=== PATIENT | female | born 1990 ===

== ENCOUNTER 2018-05-30 07:18 | Day surgery (SDC) | payer BC ==
[~2018-05-30 07:18] MED LIST: Lactated Ringers 1,000 ML IV SCH; Lidocaine 1%/Sod Bicarbonate in NS 8.4% 1 ML Syringe IDERM PRN; Sodium Chloride 0.9% 10 ML Syringe FLUSH PRN
[2018-05-30] MEDS ORDERED: Propofol 200 MG/20 ML SDV ONE ×2 (07:23→07:24)
[2018-05-30] MEDS ORDERED: Lidocaine 1% 4 ML ONE (07:24)
--- NOTE | 2018-05-30 07:40 | PCM.PREANE ---
Preanesthetic Assessment - Procedure Proposed Procedure: EGD, Colonoscopy - Anesthesia/Transfusion/Family Hx Anesthesia History: Prior Anesthesia Without Reaction (sedation for wisdom teeth only) Family History of Anesthesia Reaction: No Transfusion History: No Prior Transfusion(s) Intubation History: Unknown - Review of Systems General: No Symptoms Pulmonary: Other (exercise induced asthma, not had symptoms for years since HS ) Cardiovascular: No Symptoms Gastrointestinal: Other (IBS ) Neurological: No Symptoms Other: Reports: Anxiety - Physical Assessment NPO Status Date: 05/29/18 NPO Status Time: 00:00 Pulse: 84 O2 Sat by Pulse Oximetry: 98 Respiratory Rate: 16 Blood Pressure: 130/96 Temperature: 98.4 C Height: 1.68 m Weight: 115.666 kg ASA Class: 3 Mental Status: Alert & Oriented x3 Airway Class: Mallampati = 3 Dentition: Reports: Normal Dentition, Dentures Thyro-Mental Finger Breadths: 2 Mouth Opening Finger Breadths: 4 ROM/Head Extension: Full Lungs: Clear to Auscultation, Normal Respiratory Effort Cardiovascular: Regular Rate, Regular Rhythm - Allergies Allergies/Adverse Reactions: Allergies Allergy/AdvReac Type Severity Reaction Status Date / Time amoxicillin Allergy Rash Verified 05/29/18 11:21 Penicillins Allergy Rash Verified 05/29/18 11:21 Sulfa (Sulfonamide Allergy Rash Verified 05/29/18 11:21 Antibiotics) - Blood Blood Available: No - Anesthesia Plan Pre-Op Medication Ordered: None - Acknowledgements Anesthesia Type Planned: MAC Pt an Appropriate Candidate for the Planned Anesthesia: Yes Alternatives and Risks of Anesthesia Discussed w Pt/Guardian: Yes Pt/Guardian Understands and Agrees with Anesthesia Plan: Yes PreAnesthesia Questionnaire HEENT History: Reports: Allergic Rhinitis, Impaired Vision, Other (See Below) Other HEENT History: glasses Cardiovascular History: Reports: Hypertension Respiratory History: Reports: Asthma Gastrointestinal History: Reports: GERD, Irritable Bowel Syndrome, Other (See Below) Other Gastrointestinal History: fatty liver disease Genitourinary History: Reports: Other (See Below) Other Genitourinary History: irregular menses [employer] History: Reports: None Musculoskeletal History: Reports: None Neurological History: Reports: Migraines Psychiatric History: Reports: Anxiety Endocrine/Metabolic History: Reports: None Hematologic History: Reports: None Immunologic History: Reports: None Oncologic (Cancer) History: Reports: None - Past Surgical History Head Surgeries/Procedures: Reports: None HEENT Surgical History: Reports: Oral Surgery Cardiovascular Surgical History: Reports: None Respiratory Surgical History: Reports: None GI Surgical History: Reports: None Female Surgical History: Reports: None Male Surgical History: Reports: None Endocrine Surgical History: Reports: None Neurological Surgical History: Reports: None Musculoskeletal Surgical History: Reports: None Oncologic Surgical History: Reports: None Dermatological Surgical History: Reports: Other (See Below) - SUBSTANCE USE Smoking Status *Q: Never Smoker Recreational Drug Use History: No - HOME MEDS Home Medications: Home Meds Lisinopril 10 mg PO DAILY 02/14/18 [History] Escitalopram Oxalate 20 mg PO DAILY 05/29/18 [History] Etonogestrel [Nexplanon] 1 device SQ ASDIRECTED 05/29/18 [History] Fluticasone Propionate [Flonase] 1 dose NASBOTH DAILY PRN 05/29/18 [History] Omeprazole Magnesium [Prilosec Otc] 20 mg PO DAILY 05/29/18 [History] - CURRENT (IN HOUSE) MEDS Current Meds: Current Medications Lactated Ringer's (Ringers, Lactated) 1,000 mls @ 125 mls/hr IV ASDIRECTED JOSHUA Stop: 05/30/18 23:00 Lidocaine/Sodium Bicarbonate (Buffered Lidocaine 1% In Ns 8.4%) 0.25 ml IDERM ONETIME PRN PRN Reason: Prior to IV Start Stop: 05/30/18 18:00 Sodium Chloride (Saline Flush) 10 ml FLUSH ASDIRECTED PRN PRN Reason: Keep Vein Open Stop: 05/30/18 18:00 Discontinued Medications Lidocaine HCl (Xylocaine-Mpf 1%) Confirm Administered Dose 4 mls @ as directed .ROUTE .STK-MED ONE Stop: 05/30/18 07:25 Propofol (Diprivan 20 Ml) Confirm Administered Dose 400 mg .ROUTE .STK-MED ONE Stop: 05/30/18 07:24 Propofol (Diprivan 20 Ml) Confirm Administered Dose 200 mg .ROUTE .STK-MED ONE Stop: 05/30/18 07:25
[2018-05-30] MEDS ORDERED: Midazolam 1 MG/ML 2 ML SDV ONE (08:14)
--- NOTE | 2018-05-30 08:53 | PCM.OPNOTE ---
- General Post-Op/Procedure Note Date of Surgery/Procedure: 05/30/18 Operative Procedure(s): egdwith biopsy/colonoscopy to cecum Pre Op Diagnosis: GERD refractirt ti OOU abd rectal bleeding Post-Op Diagnosis: Same Anesthesia Technique: MAC Primary Surgeon: Dex Lopez EBL in mLs: 0 Complications: None Condition: Good
--- NOTE | 2018-05-30 12:51 | OR ---
DATE OF OPERATION: 05/30/2018 SURGEON: Dex Lopez MD PREOPERATIVE DIAGNOSIS: Gastroesophageal reflux disease refractory to PPIs. POSTOPERATIVE DIAGNOSIS: Gastroesophageal reflux disease refractory to PPIs. OPERATION PERFORMED: Esophagogastroduodenoscopy with biopsy. FINDINGS: An incompetent hiatus and some irritation at the GE junction, which was biopsied. Second portion of the duodenum; duodenal bulb; pyloric channel; antrum, body, and cardia of the stomach; and fundus were unremarkable. J- maneuver demonstrated incompetent hiatus. Rest of the esophagus did not show any pathology except for mild inflammation of the GE junction, pending biopsy report. DESCRIPTION OF PROCEDURE: The patient was taken to the endoscopy room, placed in a supine position, connected to monitoring equipment, given IV sedation, placed in left lateral position. Bite block was inserted and video Olympus gastroscope placed in the posterior oropharynx under direct vision, threaded past the cricopharyngeus, down the esophagus, into the stomach. The stomach was insufflated, and the scope passed through the pylorus to the second portion of the duodenum where it was slowly withdrawn showing normal second portion of the duodenum, duodenal bulb, and pyloric channel. Antrum, body, and cardia of the stomach and fundus were viewed. J-maneuver was performed showing an incompetent hiatus. The scope was withdrawn to the GE junction, which showed possible linear erosion on one side of the esophagus and this was biopsied. The rest of the GE junction was unremarkable, and the scope was then slowly withdrawn showing normal esophagus proximal to the GE junction. The patient tolerated the procedure, and IV sedation was continued for colonoscopy. ANESTHESIA: ESTIMATED BLOOD LOSS: MMODAL /[id number]
--- NOTE | 2018-05-30 12:54 | OR ---
DATE OF OPERATION: 05/30/2018 SURGEON: Dex Lopez MD PREOPERATIVE DIAGNOSIS: Rectal bleeding, change in bowel habits. POSTOPERATIVE DIAGNOSIS: Rectal bleeding, change in bowel habits. OPERATION PERFORMED: Colonoscopy to cecum. FINDINGS: Normal study outside of internal hemorrhoids, likely source of bleeding. There were no angiodysplasias, neoplasias, large tumor masses, ulcerations, or diverticulum. ANESTHESIA: Procedure done under IV sedation. DESCRIPTION OF PROCEDURE: The patient having been taken to the endoscopy room, connected to monitoring equipment, given sedation for EGD, IV sedation was continued for colonoscopy, placed in the left lateral position. Perianal area was unremarkable. Rectal exam showed good sphincter tone. A video Olympus colonoscope was then introduced into the rectum and threaded up without problem to the cecum, where the appendicular orifice was noted. Prep was excellent. [place] Cleansing Score grade B. The scope was slowly withdrawn showing the cecum, ascending colon, transverse colon, descending colon, sigmoid colon, and rectum. Retroflexed view was done. Pockets of stool were easily aspirated giving a good view. The patient tolerated the procedure, internal hemorrhoids were noted, and sent to recovery room in stable condition. She will be followed up in the clinic by her family physician. ESTIMATED BLOOD LOSS: MMODAL /[id number]
== END 2018-05-30 09:45 | disposition home or self-care (01) ==
LOC: JD.SDS 07:18
PROVIDERS: ATTEND Surgery
DX: K62.5 Hemorrhage of anus and rectum (principal); K64.8 Other hemorrhoids; K59.00 Constipation, unspecified; R19.7 Diarrhea, unspecified; K21.9 Gastro-esophageal reflux disease without esophagitis; K22.0 Achalasia of cardia; J45.990 Exercise induced bronchospasm; I10 Essential (primary) hypertension; G43.909 Migraine, unspecified, not intractable, without status migrainosus; F41.9 Anxiety disorder, unspecified; Z68.41 Body mass index [BMI] 40.0-44.9, adult; Z79.899 Other long term (current) drug therapy; Z88.0 Allergy status to penicillin; Z88.1 Allergy status to other antibiotic agents; Z88.2 Allergy status to sulfonamides; Z79.52 Long term (current) use of systemic steroids
CPT/HCPCS: 43239; 45378; 81025; J2001; J2250; J2704; J7120; 00813